=== PATIENT | male | born 1965 | race Caucasian/White ===

== ENCOUNTER 2017-12-19 13:06 | Day surgery (SDC) | payer OTHER ==
[~2017-12-19 13:06] MED LIST: CEFAZOLIN 2 GM/50 ML (PMX) 50 ML IVPB; SOD CHLORIDE 0.9% 1,000 ML IV
[2017-12-19 14:58] LABS: ADD MAN DIFF? NO
[2017-12-19 15:01] LABS: WHITE BLOOD COUNT 6.3 10^3/ul (4.8-10.8)
[2017-12-19 15:01] LABS: BASOPHILS % 0.6 % (0.0-2.0); EOSINOPHILS # 0.3 10^3/ul (0.0-0.5); EOSINOPHILS % 4.6 % (0.0-7.0); HEMATOCRIT 41.2 % (42.0-52.0); HEMOGLOBIN 14.1 g/dl (14.0-18.0); LYMPHOCYTES # 2.2 10^3/ul (0.8-2.9); MEAN CORPUSCULAR HEMOGLOBIN 31.1 pg (29.0-33.0); MEAN CORPUSCULAR HGB CONC 34.2 g/dl (32.0-37.0); MEAN CORPUSCULAR VOLUME 90.9 fl (82.0-101.0); MONOCYTE # 0.3 10^3/ul (0.3-0.9); MONOCYTES % 5.2 % (0.0-11.0); NEUTROPHIL # 3.4 10^3/ul (1.6-7.5); NEUTROPHILS % 54.3 % (39.0-77.0); PLATELET COUNT 227 10^3/UL (140-415); RED BLOOD COUNT 4.53 10^6/ul (4.70-6.10); RED CELL DISTRIBUTION WIDTH 12.3 % (11.5-14.5)
[2017-12-19 15:18] LABS: ALANINE AMINOTRANSFERASE 22 IU/L (13-69); ALBUMIN 4.2 g/dl (3.3-4.9); ALBUMIN/GLOBULIN RATIO 1.27; ALKALINE PHOSPHATASE 57 IU/L (42-121); ANION GAP 13 (8-16); ASPARTATE AMINO TRANSFERASE 17 IU/L (15-46); BILIRUBIN,INDIRECT 0.6 mg/dl (0-1.1); BILIRUBIN,TOTAL 0.6 mg/dl (0.2-1.3); CARBON DIOXIDE 27 mmol/L (21-31); CHLORIDE 107 mmol/L (97-110); GLUCOSE 91 mg/dl (70-220); TOTAL PROTEIN 7.5 g/dl (6.1-8.1)
[2017-12-19 15:20] LABS: BLOOD UREA NITROGEN 16 mg/dl (7-20); CALCIUM 9.2 mg/dl (8.4-10.2); CREATININE 0.76 mg/dl (0.61-1.24); POTASSIUM 4.1 mmol/L (3.5-5.1); SODIUM 143 mmol/L (135-144)
[2017-12-19 15:31] LABS: INR 0.93; PROTIME 12.6 Sec (11.9-14.9)
[2017-12-19 15:32] LABS: PARTIAL THROMBOPLASTIN TIME 29.2 Sec (25.0-35.0)
[2017-12-19] MEDS ORDERED: ROCURONIUM 50 MG INJ ×2 (16:45→17:01)
[2017-12-19] MEDS ORDERED: LIDOCAINE 2% (SDV) 5 ML INJ (16:45)
[2017-12-19] MEDS ORDERED: PROPOFOL 100 ML (16:45)
[2017-12-19] MEDS ORDERED: FAMOTIDINE 20 MG INJ (16:55)
[2017-12-19] MEDS ORDERED: CEFAZOLIN 1 GM INJ (16:55)
[2017-12-19] MEDS ORDERED: ONDANSETRON 4 MG INJ (16:55)
[2017-12-19] MEDS ORDERED: DEXAMETHASONE 4 MG/ML 1 ML INJ ×2 (16:55→17:23)
[2017-12-19] MEDS: BUPIVACAINE 0.25% (MPF) 30 ML INJ (17:05)
[2017-12-19] MEDS ORDERED: ROPIVACAINE 0.2% 20 ML VIAL (17:23)
[2017-12-19] MEDS ORDERED: SUGAMMADEX SODIUM 200 MG/2 ML VIAL IV (17:37)
[2017-12-19] MEDS ORDERED: KETOROLAC 30 MG INJ (17:37)
[2017-12-19] MEDS ORDERED: HYDROCODONE/APAP (5/325) TAB PO (18:00)
[2017-12-19] MEDS ORDERED: ONDANSETRON 4 MG INJ IV ×2 (18:00→18:30)
[2017-12-19] MEDS ORDERED: IBUPROFEN 600 MG TAB PO (18:00)
[2017-12-19] MEDS ORDERED: morphine 2 MG INJ IV (18:00)
[2017-12-19] MEDS ORDERED: KETOROLAC 30 MG INJ IV (18:00)
[2017-12-19] MEDS ORDERED: HYDROmorphONE (0.2 MG/ML) 10ML SYG IV ×2 (18:30)
[2017-12-19] MEDS ORDERED: hydrALAzine 20 MG INJ IV (18:30)
[2017-12-19] MEDS ORDERED: LABETALOL HCL 20MG INJ IV (18:30)
[2017-12-19] MEDS: HYDROCODONE/APAP (5/325) TAB PO (18:57)
== END 2017-12-19 19:28 | disposition home or self-care (01) ==
LOC: SDS 13:06
DX: K80.10 Calculus of gallbladder with chronic cholecystitis without obstruction (principal)
CPT/HCPCS: 47562; 71045; 80053; 85025; 85610; 85730; 88304; 93005